=== PATIENT | male | born 1985 | race Caucasian/White ===

== ENCOUNTER 2020-08-11 13:45 | Emergency (ER) | payer MEDICAID ==
[~2020-08-11] VITALS: Ht 170.1 cm; Wt 90.7 kg
[~2020-08-11 13:45] MED LIST: ALBU17AE3 IH; DOXY100C2 PO
[2020-08-11 13:57] VITALS: BP 133/73
--- NOTE | 2020-08-11 14:04 | ED EENT ---
History of Present Illness General Chief Complaint: Oral/Throat Problems Stated Complaint: POSSIBLE ASPIRTATION Source: patient, EMS Exam Limitations: no limitations History of Present Illness Date Seen by Provider: Aug 11, 2020 Time Seen by Provider: 14:01 Initial Comments To ER by EMS from [place] where he resides. He was working out and drinking some water when he choked on the water. He believes it went down the wrong pipe. He has a history of asthma. He feels perfectly fine now he states. No cough. Timing/Duration: abrupt Severity: moderate Prearrival Treatment: no prearrival treatment Associated Symptoms: denies symptoms Allergies and Home Medications Allergies Coded Allergies: No Known Drug Allergies (Unverified , 06/04/10) Patient Home Medication List Home Medication List Reviewed: Yes Review of Systems Review of Systems Constitutional: see HPI Eyes: No Symptoms Reported Ears: No Symptoms Reported Nose: no symptoms reported Mouth: no symptoms reported Throat: no symptoms reported Respiratory: no symptoms reported Cardiovascular: no symptoms reported Musculoskeletal: no symptoms reported Skin: no symptoms reported Neurological: No Symptoms Reported Hematologic/Lymphatic: No Symptoms Reported Immunological/Allergic: no symptoms reported Physical Exam Height, Weight, BMI Height: '" Weight: lbs. oz. kg; BMI Method: General Appearance: WD/WN, no apparent distress Eyes: bilateral eye normal inspection, bilateral eye PERRL, bilateral eye EOMI Ears: bilateral ear auricle normal, bilateral ear canal normal, bilateral ear TM normal Mouth/Throat: normal mouth inspection, pharynx normal Neck: non-tender, full range of motion Respiratory: normal breath sounds, no respiratory distress, no accessory muscle use Gastrointestinal: normal bowel sounds, soft Neurologic/Psychiatric: alert, normal mood/affect, oriented x 3 Skin: normal color, warm/dry Progress/Results/Core Measures Results/Orders My Orders Orders - HENRIQUE BAÑUELOS APRN Chest Pa/Lat (2 View) (08/11/20 14:00) Departure Impression Primary Impression: Aspiration into airway Disposition: 01 HOME, SELF-CARE Condition: Stable Departure-Patient Inst. Decision time for Depature: 14:05 Referrals: CHEN CALDERA MD (PCP/Family) Primary Care Physician Patient Instructions: Choking Add. Discharge Instructions: 1. Take the medication as directed. Return to ER for any concerns. All discharge instructions reviewed with patient and/or family. Voiced understanding. Scripts Amoxicillin/Potassium Clav (Augmentin 875-125 Tablet) 1 Each Tablet 1 EACH PO BID, #10 TAB 0 Refills Prov: HENRIQUE BAÑUELOS APRN 08/11/20 HENRIQUE BAÑUELOS APRN Aug 11, 2020 14:04
[2020-08-11] MEDS ORDERED: AMOX-358 PO (14:07)
--- NOTE | 2020-08-11 14:21 | Diagnostic Imaging Report ---
INDICATION: Dysphagia. TECHNIQUE/COMPARISON: PA and lateral views of the chest were obtained. No previous study is available at this time for comparison. FINDINGS: The heart size and pulmonary vascularity are within normal limits for size. There is no evidence of pneumothorax. There may be slight atelectasis in the lingula. IMPRESSION: Possible minimal lingular atelectasis without other evidence of acute abnormality. Dictated by: Dictated on workstation # [id number]
== END 2020-08-11 14:24 | disposition home or self-care (01) ==
LOC: EDUNIT# 13:45 → ER 13:53
DX: T17.400A Unspecified foreign body in trachea causing asphyxiation, initial encounter (principal)
CPT/HCPCS: 71046